=== PATIENT | female | born 1975 | race Caucasian/White ===

== ENCOUNTER → 2017-01-01 | Day surgery (SDC) | payer MEDICARE, OTHER ==
[~2017-01-01] MED LIST: ACETAMINOPHEN 1000 MG/100 ML 100 ML IV ONE; ACETAMINOPHEN/HYDROcodone 325 MG/5 MG TAB ONE; BUPIVACAINE/EPINEPHRINE 0.25% PF 30 ML VIAL INFIL ONE; CARB25TA PO; HYDROmorphone HCL PF 2 MG/ML VIAL ONE; LACTATED RINGER'S 1000 ML INJ 1,000 ML ONE; LAMO150T PO; LIDOCAINE 1%/EPINEPHrine 1:200,000 PF SOLN 30 ML VIAL ONE; MIDAZOLAM HCL 2 MG/2 ML VIAL ONE; PROPOFOL 500 MG/50 ML BTL IV ONE; SODIUM CHLORIDE 0.9% INJ 10 ML ONE; TRIH2 PO; VANCOMYCIN HCL 1000 MG VIAL ONE; VENL75XR PO; XANA1TAB6 PO; ceFAZolin INJ 1,000 MG VIAL ONE
--- NOTE | 2017-01-02 10:55 | MP ---
cc: SUNIL CUMMINGS M.D., DON J. M.D. KOHEN, MICHAEL D. MD DATE OF SURGERY 01/01/2017 PREOPERATIVE DIAGNOSIS Muscle weakness. POSTOPERATIVE DIAGNOSIS Muscle weakness. ANESTHESIA TIVA SURGEON Sunil Cummings MD ESTIMATED BLOOD LOSS Less than 30 mL FLUIDS 800 mL crystalloid COMPLICATIONS None DRAINS None SPECIMEN Left quadriceps and left deltoid muscle biopsies to pathology. PROCEDURE IN DETAIL The patient was seen in the holding area and the left deltoid and left quadriceps region marked by the undersigned and confirmed by the patient. She was taken to the operating room and placed on the operating table in the supine position. After IV sedation was begun, the left deltoid and left quadriceps region were prepped and draped. Time-out was taken confirming the correct patient site and procedures to be performed. Skin and subcutaneous tissue on both sites were injected with 1% Xylocaine mixed with a 0.25% Marcaine with epinephrine. The deltoid region was addressed first with a longitudinal incision made directly over the deltoid muscle. Dissection was carried down to the muscle which was then sharply excised with scissors utilizing no electrocautery. The muscle was placed into a saline-soaked moist gauze and sent for immediate specimen preparation in the department of pathology. The wound was then packed away and attention then turned to the quadriceps region. A longitudinal incision was made directly over the quadriceps muscle and dissection carried down to the fascia. The fascia was sharply incised with a knife and Metzenbaum scissors. Dissection was carried out underneath the fascia sharply utilizing no electrocautery. The muscle was then sharply excised utilizing the Metzenbaum scissors and a specimen was submitted in moist gauze. Both specimens were taken to pathology immediately in fresh condition. The wounds were both made hemostatic and at this point the deltoid region was closed in two layers with interrupted 3-0 Vicryl suture and 5-0 PDS in a running subcuticular fashion. The wound was dressed with Steri-Strips and attention turned to the quadriceps region. The fascia was closed with a running 2-0 Vicryl suture and the skin closed with 3-0 Vicryl in an interrupted buried fashion. The skin itself was reapproximated with 5-0 PDS in a running subcuticular fashion and the skin dressed with Steri-Strips. The patient was taken back to the recovery room in stable condition. Sponge, needle and instrument counts were reported be correct x2. MD FELICIANO Esteves/DJL /11:31 PM /10:46 AM
== END | disposition home or self-care (01) ==
LOC: ESDC 09:50
PROVIDERS: ATTEND Surgery Trauma Surgery
DX: M62.81 Muscle weakness (generalized) (principal)
CPT/HCPCS: 01250; 01610; 20205; 88305; J0131; J0690; J1170; J3010; J3370; J7120; J2250